=== PATIENT | female | born 1950 | race Caucasian/White ===

== ENCOUNTER 2022-06-21 12:58 | Emergency (ER) | payer MEDICARE, OTHER, SELFPAY ==
[2022-06-21 13:21] VITALS: BP 123/70; PULSE 67; RESP 18; TEMP 36.8; O2SAT 100
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
== END 2022-06-21 15:55 | disposition home or self-care (01) ==
PROVIDERS: Emergency Provider Physician Assistant
DX: S51.011A Laceration without foreign body of right elbow, initial encounter (principal); Z23 Encounter for immunization; V29.9XXA Motorcycle rider (driver) (passenger) injured in unspecified traffic accident, initial encounter; Y92.85 Railroad track as the place of occurrence of the external cause
CPT/HCPCS: 12002; 90471; 99281; 99282